=== PATIENT | female | born 1960 | race African-American/Black ===

== ENCOUNTER → 2020-05-16 | Outpatient (CLI) | payer OTHER ==
[~2020-05-16] MED LIST: LAMISIL15 GM TP
== END ==
LOC: LAB 09:14
PROVIDERS: ATTEND Family Medicine
DX: Z20.828 Contact with and (suspected) exposure to other viral communicable diseases (principal)

== ENCOUNTER → 2021-07-29 | Outpatient (CLI) | payer OTHER | LOC: CAT 10:26 | PROVIDERS: ATTEND Nurse Practitioner | DX: R10.12 Left upper quadrant pain (principal) ==

== ENCOUNTER → 2021-10-03 | Outpatient (CLI) | payer OTHER | LOC: BC 08-16 09:57 | PROVIDERS: ATTEND Family Medicine | DX: Z12.31 Encounter for screening mammogram for malignant neoplasm of breast (principal); N64.89 Other specified disorders of breast ==